=== PATIENT | female | born 1955 | race Caucasian/White ===

== ENCOUNTER → 2016-11-22 | Outpatient (CLI) | payer OTHER | LOC: RAD 15:21 | DX: S92.912A Unspecified fracture of left toe(s), initial encounter for closed fracture (principal); X58.XXXA Exposure to other specified factors, initial encounter; Y93.89 Activity, other specified; Y92.89 Other specified places as the place of occurrence of the external cause; Y99.8 Other external cause status ==

== ENCOUNTER → 2019-05-22 | Outpatient (CLI) | payer OTHER | LOC: MRI 09:10 → EDSEX 09:10 | DX: M47.812 Spondylosis without myelopathy or radiculopathy, cervical region (principal); M25.78 Osteophyte, vertebrae; M48.02 Spinal stenosis, cervical region ==

== ENCOUNTER 2020-06-17 08:52 | Emergency (ER) | payer OTHER ==
[~2020-06-17] VITALS: Ht 185.4 cm; Wt 74.8 kg
[2020-06-17 09:33] LABS: ABSOLUTE NEUTROPHILS 1.4 thou/uL (1.4-8.2); BASOPHILS 0.7 % (0.0-2.0); EOSINOPHILS 1.5 % (0.0-3.0); HEMOGLOBIN 14.6 gm/dL (14.0-18.0); LYMPHOCYTES 40.7 % (24.0-44.0); MCH 32.8 pg (26.0-34.0); MCHC 33.1 g/dL (28.0-37.0); MCV 99.2 fL (80.0-100.0); MONOCYTES 9.9 % (1.0-8.0); PLATELET COUNT 157 thou/uL (150-400); POLYS 47.2 % (36.0-66.0); RBC 4.43 mil/uL (4.50-6.00); RDW 13.8 % (10.5-14.5)
[2020-06-17 09:40] LABS: CALCIUM 9.2 mg/dL (8.5-10.1); CREATININE 0.9 mg/dL (0.7-1.3); POTASSIUM 4.5 mmol/L (3.5-5.1)
[2020-06-17 10:30] VITALS: BP 135/78
[2020-06-17] MEDS ORDERED: MEDROLDOSEPACK PO (10:31)
== END 2020-06-17 11:03 | disposition home or self-care (01) ==
LOC: ER 08:52
PROVIDERS: Emergency Medicine
DX: T50.B91A Poisoning by other viral vaccines, accidental (unintentional), initial encounter (principal); R22.1 Localized swelling, mass and lump, neck; R42 Dizziness and giddiness; Z88.7 Allergy status to serum and vaccine; Y92.89 Other specified places as the place of occurrence of the external cause